=== PATIENT | female | born 1980 | race Caucasian/White ===

== ENCOUNTER 2017-06-01 18:05 | Emergency (ER) | payer SELFPAY ==
[~2017-06-01] VITALS: Ht 149.9 cm; Wt 56.3 kg
[2017-06-01] MEDS ORDERED: SODIUM CHLORIDE FLUSH 10ML SYR IVF ONE (18:30)
[2017-06-01] MEDS ORDERED: KETOROLAC 30 MG/1 ML IVPush ONE (18:30)
[2017-06-01] MEDS ORDERED: SODIUM CHLORIDE 0.9% 1,000ML IVBOLUS ONE (18:30)
[2017-06-01 18:44] LABS: HEMATOCRIT 30.2 % (34.6-47.8); HEMOGLOBIN 9.6 g/dL (11.7-16.4); WHITE BLOOD COUNT 10.6 x10^3/uL (3.4-10)
[2017-06-01 18:53] LABS: ASPARTATE AMINO TRANSFERASE 11 U/L (15-37); BLOOD UREA NITROGEN 10 mg/dL (7-18)
[2017-06-01] MEDS ORDERED: KETOROLAC 30 MG/1 ML ONE (18:53)
[2017-06-01 19:15] LABS: TOTAL IRON BINDING CAPACITY 463 mcg/dL (250-450)
[2017-06-01] MEDS ORDERED: morphine SULFATE 10 MG/ML, 1ML ONE (19:21)
[2017-06-01] MEDS ORDERED: MORPHINE SULFATE 4 MG/ML, 1ML IVPush ONE (19:30)
[2017-06-01] MEDS ORDERED: CEFTRIAXONE PMX 1GM/50ML 50 ML IV ONE (20:00)
[2017-06-01] MEDS ORDERED: CEFTRIAXONE PMX 1GM/50ML 50 ML ONE (20:28)
[2017-06-01 20:42] VITALS: BP 100/60
[2017-06-01 20:43] LABS: PATH.CAST-FLAG NOT PRESENT; SPERM-FLAG NOT PRESENT; SRC-FLAG NOT PRESENT; XTAL-FLAG NOT PRESENT; YLC-FLAG NOT PRESENT
== END 2017-06-01 21:51 | disposition home or self-care (01) ==
LOC: ED 21:05
DX: N10 Acute pyelonephritis (principal); D50.0 Iron deficiency anemia secondary to blood loss (chronic)
CPT/HCPCS: 36415; 74176; 80053; 81001; 83540; 83550; 84703; 85025; 87077; 87086; 87147; 96361; 96365; 96375; 99285; J0696; J1885; J7030; 87186

== ENCOUNTER 2017-11-27 16:19 | Emergency (ER) | payer MEDICAID, OTHER ==
[~2017-11-27] VITALS: Ht 149.9 cm; Wt 55.0 kg
[2017-11-27] MEDS ORDERED: ASPIRIN 81 MG TABLET CHEW PO ONE (17:00)
[2017-11-27] MEDS ORDERED: SODIUM CHLORIDE FLUSH 10ML SYR IVF ONE (17:00)
[2017-11-27] MEDS ORDERED: ASPIRIN 81 MG TABLET CHEW ONE (17:02)
[2017-11-27 17:03] LABS: BASOPHILS # (AUTO) 0.05 x10^3/uL (0-0.1); BASOPHILS % (AUTO) 1 % (0-1); EOSINOPHILS # (AUTO) 0.09 x10^3/uL (0-0.4); EOSINOPHILS % (AUTO) 1 % (1-7); LYMPHOCYTES # (AUTO) 2.34 x10^3/uL (1-3.4); LYMPHOCYTES % (AUTO) 35 % (22-44); MD MORPH REVIEW ONLY; MEAN CORPUSCULAR HEMOGLOBIN 19.5 pg (27.0-34.8); MEAN CORPUSCULAR HGB CONC 30.4 g/dL (32.4-35.8); MEAN CORPUSCULAR VOLUME 64.1 fL (80-100); MEAN PLATELET VOLUME 7.7 fL (7.4-10.4); MONOCYTES # (AUTO) 0.41 x10^3/uL (0.2-0.8); MONOCYTES % (AUTO) 6 % (2-9); NEUTROPHILS # (AUTO) 3.79 x10^3/uL (1.8-6.8); NEUTROPHILS % (AUTO) 57 % (42-75); PLATELET COUNT 438 x10^3/uL (130-400); RED BLOOD COUNT 4.34 x10^6/uL (3.82-5.3); RED CELL DISTRIBUTION WIDTH 23.3 % (9.6-15.2)
[2017-11-27 17:13] LABS: ALANINE AMINOTRANSFERASE 17 U/L (12-78); ALBUMIN 3.7 g/dL (3.4-5.0); ANION GAP 7 mmol/L (5-15); CALCIUM 8.5 mg/dL (8.5-10.1); CHLORIDE 110 mmol/L (98-107); CREATININE 0.77 mg/dL (0.55-1.02)
[2017-11-27 17:18] LABS: ALKALINE PHOSPHATASE 46 U/L (45-117); BILIRUBIN,TOTAL 0.2 mg/dL (0.2-1.0); TOTAL PROTEIN 7.6 g/dL (6.4-8.2); TROPONIN I < 0.015 ng/mL (0.000-0.045)
[2017-11-27] MEDS ORDERED: LORazepam 1MG TABLET ONE (17:23)
[2017-11-27] MEDS ORDERED: LORazepam 1MG TABLET PO ONE (17:30)
[2017-11-27 17:39] LABS: OVALOCYTES 1+; POLYCHROMASIA 1+
[2017-11-27 17:40] LABS: <PLATELET ESTIMATE> INCREASED; HYPOCHROMIA 2+; LARGE PLATELETS 1+; MICROCYTOSIS 2+
[2017-11-27 17:41] LABS: ANISOCYTOSIS 1+
[2017-11-27 17:57] LABS: FREE T4 (FREE THYROXINE) 1.15 ng/dL (0.76-1.46); THYROID STIMULATING HORMONE 4.51 mIU/L (0.358-3.740)
[2017-11-27] MEDS ORDERED: SODIUM CHLORIDE 0.9% 1,000ML IVBOLUS ONE (19:00)
[2017-11-27 20:20] VITALS: BP 104/76
== END 2017-11-27 21:13 | disposition home or self-care (01) ==
LOC: ED 20:51
DX: R07.2 Precordial pain (principal); F41.1 Generalized anxiety disorder; E03.9 Hypothyroidism, unspecified; D64.9 Anemia, unspecified; N12 Tubulo-interstitial nephritis, not specified as acute or chronic
CPT/HCPCS: 36415; 71045; 80053; 84439; 84443; 84481; 84484; 84703; 85025; 85379; 93005; 99285; J7030

== ENCOUNTER 2018-05-24 18:28 | Emergency (ER) | payer MEDICAID ==
[~2018-05-24] VITALS: Ht 149.9 cm; Wt 58.2 kg
[2018-05-24 18:53] LABS: BASOPHILS # (AUTO) 0.06 x10^3/uL (0-0.1); BASOPHILS % (AUTO) 1 % (0-1); EOSINOPHILS # (AUTO) 0.14 x10^3/uL (0-0.4); EOSINOPHILS % (AUTO) 2 % (1-7); LYMPHOCYTES # (AUTO) 3.35 x10^3/uL (1-3.4); LYMPHOCYTES % (AUTO) 40 % (22-44); MD NO; MEAN CORPUSCULAR HEMOGLOBIN 20.9 pg (27.0-34.8); MEAN CORPUSCULAR HGB CONC 30.9 g/dL (32.4-35.8); MEAN CORPUSCULAR VOLUME 67.6 fL (80-100); MEAN PLATELET VOLUME 7.7 fL (7.4-10.4); MONOCYTES # (AUTO) 0.43 x10^3/uL (0.2-0.8); MONOCYTES % (AUTO) 5 % (2-9); NEUTROPHILS # (AUTO) 4.37 x10^3/uL (1.8-6.8); NEUTROPHILS % (AUTO) 52 % (42-75); PLATELET COUNT 502 x10^3/uL (130-400); RED BLOOD COUNT 4.51 x10^6/uL (3.82-5.3); RED CELL DISTRIBUTION WIDTH 19.3 % (9.6-15.2)
[2018-05-24] MEDS ORDERED: ONDANSETRON ODT 4 MG PO ONE (19:00)
[2018-05-24] MEDS ORDERED: HYDROcodone/APAP 5/325 TABLET PO ONE ×2 (19:00→22:30)
[2018-05-24] MEDS ORDERED: ONDANSETRON ODT 4 MG ONE (19:04)
[2018-05-24 19:05] LABS: ALANINE AMINOTRANSFERASE 20 U/L (12-78); ALBUMIN 4.3 g/dL (3.4-5.0); ANION GAP 11 mmol/L (5-15); CALCIUM 8.7 mg/dL (8.5-10.1); CHLORIDE 105 mmol/L (98-107); CREATININE 0.66 mg/dL (0.55-1.02)
[2018-05-24] MEDS ORDERED: HYDROcodone/APAP 5/325 TABLET ONE ×2 (19:05→22:15)
[2018-05-24 19:07] LABS: ALKALINE PHOSPHATASE 47 U/L (45-117); BILIRUBIN,TOTAL 0.3 mg/dL (0.2-1.0)
[2018-05-24 19:07] LABS: MICROSCOPIC NOT IND
[2018-05-24 19:13] LABS: CULTURE INDICATED? NO
[2018-05-24 22:57] VITALS: BP 89/50
== END 2018-05-24 23:24 | disposition home or self-care (01) ==
LOC: ED 20:08
DX: R10.31 Right lower quadrant pain (principal); M25.551 Pain in right hip; E03.9 Hypothyroidism, unspecified; F41.1 Generalized anxiety disorder; Z90.49 Acquired absence of other specified parts of digestive tract
CPT/HCPCS: 36415; 76830; 80053; 81003; 83690; 84703; 85025; 99285; Q0162

== ENCOUNTER 2018-05-26 20:47 | Emergency (ER) | payer MEDICAID ==
[~2018-05-26] VITALS: Ht 149.9 cm; Wt 57.7 kg
[2018-05-26 21:54] LABS: HCG UR SG 1.034 (1.003-1.030)
[2018-05-26] MEDS ORDERED: HYDROcodone/APAP 5/325 TABLET PO ONE (22:00)
[2018-05-26] MEDS ORDERED: HYDROcodone/APAP 5/325 TABLET ONE (22:25)
[2018-05-26 22:54] LABS: CLUE CELLS NONE SEEN (NONE SEEN); WET PREP WBCS FEW (FEW)
[2018-05-26 23:00] VITALS: BP 98/57
== END 2018-05-26 23:35 | disposition home or self-care (01) ==
LOC: ED 23:01
DX: N89.8 Other specified noninflammatory disorders of vagina (principal); E03.9 Hypothyroidism, unspecified; R10.2 Pelvic and perineal pain; M54.5 Low back pain; Z98.890 Other specified postprocedural states; Z90.89 Acquired absence of other organs; Z87.42 Personal history of other diseases of the female genital tract
CPT/HCPCS: 76857; 81025; 87210; 87491; 87591; 87808; 99285

== ENCOUNTER 2018-11-26 11:53 | Emergency (ER) | payer MEDICAID ==
[~2018-11-26] VITALS: Ht 149.9 cm; Wt 57.0 kg
[2018-11-26] MEDS ORDERED: SODIUM CHLORIDE FLUSH 10ML SYR IVF ONE (12:30)
[2018-11-26] MEDS ORDERED: ONDANSETRON 2MG/ML, 2ML IVPush ONE (12:30)
[2018-11-26] MEDS ORDERED: ONDANSETRON 2MG/ML, 2ML ONE (12:32)
[2018-11-26] MEDS ORDERED: MORPHINE SULFATE 4 MG/ML, 1ML ONE ×2 (12:33→13:47)
--- NOTE | 2018-11-26 12:35 | NUR ---
PT C/O RIGHT FLANK PAIN FOR ABOUT A WEEK WITH FEVERS/CHILLS OVER LAST 2 DAYS, NAUSEA LAST 2 DAYS WELL. PT REPORTS INCREASED URINE FREQUENCY WELL. PT HAS HX OF PYELONEPHRITIS AND PT REPORTS SYMPTOMS FEEL SIMILAR.
[2018-11-26] MEDS: MORPHINE SULFATE 4 MG/ML, 1ML IVPush PRN ×2 (12:42→13:50)
[2018-11-26] MEDS ORDERED: LEVO100T5 PO (12:46)
[2018-11-26 12:59] LABS: CULTURE INDICATED? YES; MICROSCOPIC INDICATED
--- NOTE | 2018-11-26 13:09 | NUR ---
REPORT TO MORRIS Gamboa RN
[2018-11-26 13:33] LABS: ALANINE AMINOTRANSFERASE 14 U/L (12-78); ALBUMIN 3.8 g/dL (3.4-5.0); ANION GAP 6 mmol/L (5-15); CALCIUM 8.2 mg/dL (8.5-10.1); CHLORIDE 108 mmol/L (98-107); CREATININE 0.67 mg/dL (0.55-1.02)
[2018-11-26 13:38] LABS: ALKALINE PHOSPHATASE 49 U/L (45-117); BILIRUBIN,TOTAL 0.3 mg/dL (0.2-1.0); TOTAL PROTEIN 7.6 g/dL (6.4-8.2)
[2018-11-26 13:42] LABS: MEAN CORPUSCULAR HEMOGLOBIN 16.5 pg (27.0-34.8); MEAN CORPUSCULAR VOLUME 57.3 fL (80-100); MEAN PLATELET VOLUME 7.7 fL (7.4-10.4); PLATELET COUNT 403 x10^3/uL (130-400); RED CELL DISTRIBUTION WIDTH 21.2 % (9.6-15.2)
--- NOTE | 2018-11-26 13:44 | NUR ---
Hourly rounding on pt. Pt resting on gurney connected to NIBP and continous pulse ox. Call light within reach. NADN. Pt c/o "12/19" right flank and RLQ pain. Bed rail up for safety measures.
[2018-11-26 13:49] LABS: MEAN CORPUSCULAR HGB CONC 28.8 g/dL (32.4-35.8)
[2018-11-26 14:32] LABS: BASOPHILS # (AUTO) 0.02 x10^3/uL (0-0.1); BASOPHILS % (AUTO) 0 % (0-1); EOSINOPHILS # (AUTO) 0.08 x10^3/uL (0-0.4); EOSINOPHILS % (AUTO) 1 % (1-7); LYMPHOCYTES % (AUTO) 24 % (22-44); MD MORPH REVIEW ONLY; MONOCYTES # (AUTO) 0.62 x10^3/uL (0.2-0.8); MONOCYTES % (AUTO) 9 % (2-9); NEUTROPHILS # (AUTO) 4.36 x10^3/uL (1.8-6.8); NEUTROPHILS % (AUTO) 65 % (42-75)
[2018-11-26 14:36] LABS: ANISOCYTOSIS 2+; HYPOCHROMIA 2+; MICROCYTOSIS 2+
[2018-11-26 14:37] LABS: OVALOCYTES 1+
[2018-11-26 14:38] LABS: <PLATELET ESTIMATE> INCREASED; LARGE PLATELETS 1+
--- NOTE | 2018-11-26 14:53 | NUR ---
Purple slip sent to blood bank request.
[2018-11-26 15:05] VITALS: BP 117/74
[2018-11-26 15:20] VITALS: BP 102/66
--- NOTE | 2018-11-26 15:21 | NUR ---
LATE NOTE FOR 1505: PIV blood transfusion started. Please see transusions tab for details. NADN. No needs expressed. Pt connected to NIBP and continous pulse ox. Pt has spouse at bedside.
[2018-11-26] MEDS ORDERED: CEFDINIR 300 MG CAPSULE PO ONE (15:30)
[2018-11-26] MEDS ORDERED: CEFDINIR 300 MG CAPSULE ONE (15:39)
--- NOTE | 2018-11-26 15:42 | NUR ---
Provided pt medication per EMAR and water per request. Pt appreciative. NADN. Pt is AOX4, skin is pink, warm, and dry, vital signs stable (please see transfusions), and pt has unlabored respirations with even chest rise and fall. Both bedrails up for safety measures, call light within reach. No other needs requested at this time.
[2018-11-26 15:58] VITALS: BP 102/66
[2018-11-26 16:26] VITALS: BP 111/64
--- NOTE | 2018-11-26 16:28 | NUR ---
Pt resquesting pain medication for right flank pain prior to d/c from ED. Pt rates right flank pain at a 01/18. PIV blood transfusion finished infusing. Please see transfusions flow sheet. NADN. Call light within reach.
[2018-11-26] MEDS ORDERED: KETOROLAC 30 MG/1 ML ONE (16:31)
--- NOTE | 2018-11-26 16:38 | NUR ---
Verbal order placed per verbal report from ED PA. Verbal order read back. Provided medication per EMAR. Pt appreciative. NADN. No needs requested at this time. Call light within reach. Both bedrails up for safety measures.
[2018-11-26] MEDS ORDERED: KETOROLAC 30 MG/1 ML IVPush ONE (17:00)
== END 2018-11-26 17:04 | disposition home or self-care (01) ==
LOC: ED 12:13
DX: N30.01 Acute cystitis with hematuria (principal); D50.8 Other iron deficiency anemias
CPT/HCPCS: 36415; 36430; 76700; 80053; 81001; 83690; 84703; 85025; 86850; 86900; 86923; 87077; 87086; 96374; 96375; 96376; 99285; J1885; J2405; P9016; 87186

== ENCOUNTER 2019-01-06 22:47 | Emergency (ER) | payer MEDICAID ==
[~2019-01-06] VITALS: Ht 144.8 cm; Wt 58.8 kg
[~2019-01-06 22:47] MED LIST: LEVO100T5 PO
--- NOTE | 2019-01-06 22:58 | NUR ---
FIRST CONTACT WITH PT. PT HAS HEAVY VAGINAL BLEEDING. PT HAS HX OF SAME AND HAS HAD BLOOD TRANSFUSIONS FOR THIS. PT FEELING WEAK AND IS PASSING LARGE CLOTS. PT C/O ABD PAIN WITH NAUSEA WELL. PT'S AOX4. RESPS EVEN AND UNLABORED. AWAITING ORDERES.
[2019-01-06] MEDS ORDERED: SODIUM CHLORIDE FLUSH 10ML SYR IVF ONE (23:00)
[2019-01-06 23:11] LABS: MEAN CORPUSCULAR HEMOGLOBIN 21.6 pg (27.0-34.8); MEAN CORPUSCULAR HGB CONC 31.1 g/dL (32.4-35.8); MEAN CORPUSCULAR VOLUME 69.6 fL (80-100); PLATELET COUNT 366 x10^3/uL (130-400); RED BLOOD COUNT 4.49 x10^6/uL (3.82-5.3); RED CELL DISTRIBUTION WIDTH 34.1 % (9.6-15.2)
[2019-01-06 23:21] LABS: INTERNATIONAL NORMALIZED RATIO 0.95 (0.93-1.1)
[2019-01-06 23:22] LABS: ALANINE AMINOTRANSFERASE 25 U/L (12-78); ALBUMIN 3.7 g/dL (3.4-5.0); ANION GAP 7 mmol/L (5-15); CALCIUM 8.7 mg/dL (8.5-10.1); CHLORIDE 107 mmol/L (98-107); CREATININE 0.66 mg/dL (0.55-1.02)
[2019-01-06 23:26] LABS: ALKALINE PHOSPHATASE 51 U/L (45-117); BILIRUBIN,TOTAL 0.2 mg/dL (0.2-1.0); TOTAL PROTEIN 7.7 g/dL (6.4-8.2)
[2019-01-06 23:29] LABS: BASOPHILS # (AUTO) 0.01 x10^3/uL (0-0.1); BASOPHILS % (AUTO) 0 % (0-1); EOSINOPHILS # (AUTO) 0.24 x10^3/uL (0-0.4); EOSINOPHILS % (AUTO) 3 % (1-7); LYMPHOCYTES # (AUTO) 2.62 x10^3/uL (1-3.4); LYMPHOCYTES % (AUTO) 36 % (22-44); MD MORPH REVIEW ONLY; MONOCYTES # (AUTO) 0.41 x10^3/uL (0.2-0.8); MONOCYTES % (AUTO) 6 % (2-9); NEUTROPHILS # (AUTO) 3.89 x10^3/uL (1.8-6.8); NEUTROPHILS % (AUTO) 54 % (42-75)
[2019-01-06 23:30] LABS: ANISOCYTOSIS 2+
[2019-01-06 23:31] LABS: MICROCYTOSIS 1+
[2019-01-06 23:32] LABS: OVALOCYTES 1+; SCHISTOCYTES 1+
[2019-01-06 23:34] LABS: <PLATELET ESTIMATE> ADEQUATE; <PLT MORPHOLOGY> NORMAL PLT MORPH; HYPOCHROMIA 2+
--- NOTE | 2019-01-07 00:11 | NUR ---
PT PROVIDED WARM BLANCKET AND PILLOW. PT RESTING IN [facility]. RESPS EVEN AND UNLABORED. PT'S AOX4.
--- NOTE | 2019-01-07 00:42 | NUR ---
PELVIC EXAM DONE AT BEDSIDE. PT TOLERATED WELL.
[2019-01-07] MEDS ORDERED: KETOROLAC 60 MG/2 ML ONE (00:45)
[2019-01-07] MEDS ORDERED: HYDROcodone/APAP 5/325 TABLET ONE (00:46)
--- NOTE | 2019-01-07 00:52 | NUR ---
PT MEDICATED PER EMAR FOR PAIN. PT TOLERATED WELL. PT'S AOX4. RESPS EVEN AND UNLABORED.
[2019-01-07] MEDS ORDERED: HYDROcodone/APAP 5/325 TABLET PO ONE (01:00)
[2019-01-07] MEDS ORDERED: KETOROLAC 30 MG/1 ML IM ONE (01:00)
--- NOTE | 2019-01-07 01:26 | NUR ---
Pt ambulated to restroom with steady gait to provided ua.
[2019-01-07 01:50] LABS: MICROSCOPIC AUTO
[2019-01-07 01:53] LABS: CULTURE INDICATED? YES
[2019-01-07] MEDS ORDERED: CEFTRIAXONE PMX 1GM/50ML 50 ML ONE (02:39)
[2019-01-07 02:40] VITALS: BP 100/52
--- NOTE | 2019-01-07 02:45 | NUR ---
ABX INFUSING AT THIS TIME. PT TOLERATED WELL.
[2019-01-07] MEDS ORDERED: CEFTRIAXONE PMX 1GM/50ML 50 ML IV ONE (03:00)
--- NOTE | 2019-01-07 03:28 | NUR ---
PT GIVEN DC INSTRUCTIONS AND SCRIPTS. PT EDUCATED REGARDING DC MEDICATIONS. PT'S AOX4. RESPS EVEN AND UNLABORED. NO ACUTE DISTRESS AT DC. PT AMB TO DC WITH STEADY GAIT.
== END 2019-01-07 03:29 | disposition home or self-care (01) ==
LOC: ED 23:07
DX: N30.01 Acute cystitis with hematuria (principal); D50.0 Iron deficiency anemia secondary to blood loss (chronic); N93.8 Other specified abnormal uterine and vaginal bleeding; E03.9 Hypothyroidism, unspecified
CPT/HCPCS: 36415; 80053; 81001; 84703; 85025; 85610; 85730; 86850; 86900; 87086; 96365; 96372; 99283; J0696; J1885; 87077; 87186

== ENCOUNTER 2019-08-08 18:15 | Emergency (ER) | payer MEDICAID ==
[~2019-08-08] VITALS: Ht 149.9 cm; Wt 56.0 kg
[2019-08-08] MEDS ORDERED: OXYC5CAP2 PO (18:53)
--- NOTE | 2019-08-08 18:55 | NUR ---
SBAR RPT TO [facility] RN'S
[2019-08-08 18:56] LABS: ALANINE AMINOTRANSFERASE 13 U/L (12-78); ALBUMIN 3.9 g/dL (3.4-5.0); ANION GAP 8 mmol/L (5-15); CALCIUM 8.2 mg/dL (8.5-10.1); CHLORIDE 106 mmol/L (98-107); CREATININE 0.85 mg/dL (0.55-1.02)
[2019-08-08] MEDS ORDERED: LORazepam 1MG TABLET PO ONE (19:00)
[2019-08-08] MEDS ORDERED: KETOROLAC 30 MG/1 ML IM ONE (19:00)
[2019-08-08 19:01] LABS: ALKALINE PHOSPHATASE 46 U/L (45-117); BILIRUBIN,TOTAL 0.3 mg/dL (0.2-1.0); T4 (THYROXINE) 9.9 mcg/dL (4.8-13.9); TOTAL PROTEIN 7.7 g/dL (6.4-8.2)
[2019-08-08 19:10] LABS: MEAN CORPUSCULAR HEMOGLOBIN 16.8 pg (27.0-34.8); MEAN CORPUSCULAR VOLUME 57.2 fL (80-100); MEAN PLATELET VOLUME 7.5 fL (7.4-10.4); PLATELET COUNT 573 x10^3/uL (130-400); RED BLOOD COUNT 4.25 x10^6/uL (3.82-5.3); RED CELL DISTRIBUTION WIDTH 20.5 % (9.6-15.2)
[2019-08-08 19:13] LABS: MD YES
[2019-08-08 19:17] LABS: BASOS#(MANUAL) 0.06 x10^3/uL (0-0.1); BASOS% (MANUAL) 1 % (0-1); EOS#(MANUAL) 0.06 x10^3/uL (0.0-0.4); EOS% (MANUAL) 1 % (1-7); LYMPH#(MANUAL) 1.89 x10^3/uL (1-3.4); LYMPHS% (MANUAL) 30 % (22-44); MONOS#(MANUAL) 0.32 x10^3/uL (0.3-2.7); MONOS% (MANUAL) 5 % (2-9); REACTIVE LYMPHS # (MANUAL) 0.13 x10^3/uL (0-0); REACTIVE LYMPHS % (MANUAL) 2 % (0-0); SEG#(MANUAL) 3.84 x10^3/uL (1.8-6.8); SEGS% (MANUAL) 61 % (42-75)
[2019-08-08 19:18] LABS: ANISOCYTOSIS 1+; HYPOCHROMIA 2+; MICROCYTOSIS 2+; POLYCHROMASIA 1+; TARGET CELLS 1+
[2019-08-08 19:19] LABS: OVALOCYTES 1+
[2019-08-08 19:20] LABS: <PLATELET ESTIMATE> INCREASED; <PLT MORPHOLOGY> NORMAL PLT MORPH; MEAN CORPUSCULAR HGB CONC 29.4 g/dL (32.4-35.8)
[2019-08-08] MEDS ORDERED: KETOROLAC 60 MG/2 ML ONE (19:26)
[2019-08-08] MEDS ORDERED: LORazepam 1MG TABLET ONE (19:27)
--- NOTE | 2019-08-08 19:30 | NUR ---
PT MEDICATED PER SEP. MD IN ROOM TO INFORM PT ABOUT POC. PT DENIES FURTHER NEEDS AT THIS TIME. MONITORING IN PLACE, CALL LIGHT WITHIN REACH, ALL SAFETY MEASURES IN PLACE.
[2019-08-08 20:42] VITALS: BP 106/57
[2019-08-08 20:56] VITALS: BP 108/72
[2019-08-08 21:37] VITALS: BP 94/58
[2019-08-08 21:40] VITALS: BP 94/58
--- NOTE | 2019-08-08 21:41 | NUR ---
BLOOD TRANSFUSED TO PT, TOLERATED WELL. PT RESTING ON GURNEY WITH EYES CLOSED. FAMILY AT BS FOR SUPPORT. ALL MONITORING STILL APPLIED, CALL LIGHT WITHIN REACH.
== END 2019-08-08 22:38 | disposition home or self-care (01) ==
LOC: ED 21:11
DX: M54.2 Cervicalgia (principal); M25.512 Pain in left shoulder; M54.6 Pain in thoracic spine; R25.2 Cramp and spasm; D63.8 Anemia in other chronic diseases classified elsewhere; R20.2 Paresthesia of skin; E03.9 Hypothyroidism, unspecified; Z90.49 Acquired absence of other specified parts of digestive tract
CPT/HCPCS: 36415; 80053; 83735; 84436; 84443; 84703; 85025; 86850; 86900; 86923; 93005; 96372; 99284; J1885; P9016

== ENCOUNTER 2020-01-06 23:08 | Emergency (ER) | payer MEDICAID ==
[~2020-01-06] VITALS: Ht 144.8 cm; Wt 58.0 kg
[~2020-01-06 23:08] MED LIST changes: +OXYC5CAP2 PO
[2020-01-07] MEDS ORDERED: HYDROcodone/APAP 5/325 TABLET ONE (00:18)
[2020-01-07] MEDS ORDERED: HYDROcodone/APAP 5/325 TABLET PO ONE (00:30)
[2020-01-07 00:33] LABS: MEAN CORPUSCULAR HEMOGLOBIN 15.9 pg (27.0-34.8); MEAN CORPUSCULAR VOLUME 57.1 fL (80-100); MEAN PLATELET VOLUME 7.8 fL (7.4-10.4); PLATELET COUNT 412 x10^3/uL (130-400); RED BLOOD COUNT 3.96 x10^6/uL (3.82-5.3); RED CELL DISTRIBUTION WIDTH 22.9 % (9.6-15.2)
[2020-01-07 00:34] LABS: MEAN CORPUSCULAR HGB CONC 27.8 g/dL (32.4-35.8)
[2020-01-07 00:35] LABS: ALANINE AMINOTRANSFERASE 19 U/L (12-78); ALBUMIN 3.6 g/dL (3.4-5.0); ANION GAP 5 mmol/L (5-15); CALCIUM 8.4 mg/dL (8.5-10.1); CHLORIDE 108 mmol/L (98-107); CREATININE 0.63 mg/dL (0.55-1.02)
--- NOTE | 2020-01-07 00:35 | NUR ---
PT MEDICATED PER MAR. REQUESTING TO WAIT OR US UNTIL MEDS KICK IN. US TECH AWARE.
[2020-01-07 00:40] LABS: ALKALINE PHOSPHATASE 59 U/L (45-117); BILIRUBIN,TOTAL 0.2 mg/dL (0.2-1.0); TOTAL PROTEIN 7.6 g/dL (6.4-8.2)
--- NOTE | 2020-01-07 01:02 | NUR ---
PT STATES PAIN IS IMPROVING. PT TO US VIA JOSE. BLOOD TO BE TRANSFUSED UPON RETURN.
[2020-01-07 01:03] LABS: MD YES
[2020-01-07 01:18] LABS: ANISOCYTOSIS 1+; EOS#(MANUAL) 0.07 x10^3/uL (0.0-0.4); EOS% (MANUAL) 1 % (1-7); LYMPH#(MANUAL) 2.49 x10^3/uL (1-3.4); LYMPHS% (MANUAL) 35 % (22-44); MONOS% (MANUAL) 7 % (2-9); SEG#(MANUAL) 4.05 x10^3/uL (1.8-6.8); SEGS% (MANUAL) 57 % (42-75)
[2020-01-07 01:19] LABS: <PLATELET ESTIMATE> INCREASED; HYPOCHROMIA 2+; MICROCYTOSIS 2+; OVALOCYTES 1+; POLYCHROMASIA 1+; TARGET CELLS 1+
[2020-01-07 01:20] LABS: <PLT MORPHOLOGY> NORMAL PLT MORPH
[2020-01-07] MEDS ORDERED: MORPHINE SULFATE 4 MG/ML, 1ML ONE ×2 (01:40→03:43)
[2020-01-07] MEDS ORDERED: ONDANSETRON 2MG/ML, 2ML ONE (01:40)
[2020-01-07] MEDS: MORPHINE SULFATE 4 MG/ML, 1ML IVPush PRN ×2 (01:49→03:50)
[2020-01-07] MEDS ORDERED: ONDANSETRON 2MG/ML, 2ML IVPush ONE (02:00)
[2020-01-07] MEDS ORDERED: SODIUM CHLORIDE 0.9% 1,000ML IVBOLUS ONE (02:00)
[2020-01-07 02:06] VITALS: BP 114/66
--- NOTE | 2020-01-07 02:07 | NUR ---
BLOOD TRANSFUSION STARTED. PT AWARE OF S/S TO NOTIFY RN. BP AND PULSE OX MONITORING IN PLACE. CALL LIGHT IN REACH.
[2020-01-07 02:24] VITALS: BP 96/61
--- NOTE | 2020-01-07 02:25 | NUR ---
PT DENIES RX SYMPTOMS AT THIS TIME. VSS. BLOOD TRANSFUSION CONTINUES. PT AWARE TO NOTIFY RN IMMEDIATELY WITH ANY NEW SYMPTOMS OR CONCERNS. CALL LIGHT IN REACH.
[2020-01-07 02:39] LABS: MICROSCOPIC NOT IND
[2020-01-07 03:48] VITALS: BP 107/59
--- NOTE | 2020-01-07 03:51 | NUR ---
PT TOLERATED FIRST UNIT WELL. NO REACTION NOTED. C/O INCREASING RLQ ABD PAIN. MEDICATED PER SEP. AWAITING SECOND UNIT. CALL LIGHT IN REACH.
[2020-01-07 04:15] VITALS: BP 107/59
--- NOTE | 2020-01-07 04:15 | NUR ---
Second unit PRBC transfusing. Pt reminded of s/s to notify RN. Pt states pain has improved. VSS. Call light in reach.
[2020-01-07 04:31] VITALS: BP 104/70
--- NOTE | 2020-01-07 04:32 | NUR ---
PT TOLERATING SECOND UNIT AT THIS TIME. DENIES NEEDS. CALL LIGHT IN REACH.
--- NOTE | 2020-01-07 04:52 | NUR ---
REPORT FROM NABIL ARAGON
--- NOTE | 2020-01-07 04:55 | NUR ---
Report to Flor FERRER.
[2020-01-07 05:46] VITALS: BP 105/74
--- NOTE | 2020-01-07 05:47 | NUR ---
blood transfusion ended. no adverse reactions observed. pt to be discharged
== END 2020-01-07 06:11 | disposition home or self-care (01) ==
LOC: ED 01-07 00:33
DX: N93.8 Other specified abnormal uterine and vaginal bleeding (principal); N92.4 Excessive bleeding in the premenopausal period; D62 Acute posthemorrhagic anemia; E03.9 Hypothyroidism, unspecified; Z90.49 Acquired absence of other specified parts of digestive tract
CPT/HCPCS: 36415; 36430; 76830; 80053; 81003; 84703; 85025; 86850; 86900; 86923; 93005; 96361; 96374; 96375; 96376; 99291; J2270; J2405; J7030; P9016

== ENCOUNTER 2020-01-17 13:05 | Emergency (ER) | payer MEDICAID ==
[~2020-01-17] VITALS: Ht 147.3 cm; Wt 57.6 kg
[2020-01-17 13:50] LABS: MICROSCOPIC INDICATED
--- NOTE | 2020-01-17 13:52 | NUR ---
PT STATES GEN WEAKNESS AND SOB X2 WEEKS. PT STATES BLOOD TRANSFUSION X2 WEEKS AGO R/T CHRONIC ANEMIA. PT UP TO VOID STEADY GAIT, UA COLLECED AND SENT TO LAB. PT PLACED ON MONITORS. PT IN NO RESPIR DISTRESS, SPEAKING IN FULL SENTANCES. LAB AT BEDSIDE FOR LAB DRAW. CONT TO FOLLOW ORDERS.
[2020-01-17 14:25] LABS: ALBUMIN 3.7 g/dL (3.4-5.0); ANION GAP 8 mmol/L (5-15); CALCIUM 8.7 mg/dL (8.5-10.1); CHLORIDE 107 mmol/L (98-107)
[2020-01-17 14:37] LABS: MEAN CORPUSCULAR HEMOGLOBIN 18.3 pg (27.0-34.8); MEAN CORPUSCULAR VOLUME 62.8 fL (80-100); MEAN PLATELET VOLUME 8.7 fL (7.4-10.4); PLATELET COUNT 360 x10^3/uL (130-400); RED BLOOD COUNT 4.83 x10^6/uL (3.82-5.3); RED CELL DISTRIBUTION WIDTH 35.7 % (9.6-15.2)
[2020-01-17 14:38] LABS: ALANINE AMINOTRANSFERASE 24 U/L (12-78); ALKALINE PHOSPHATASE 56 U/L (45-117); CREATININE 0.76 mg/dL (0.55-1.02); TOTAL PROTEIN 8.8 g/dL (6.4-8.2)
--- NOTE | 2020-01-17 15:00 | NUR ---
PT RESTING IN BED, AWAITING ALL RESULTS. PT REMAINS ON MONITORS, VSS. CONT TO MONITOR.
[2020-01-17 16:16] LABS: MD YES
[2020-01-17 16:24] LABS: EOS#(MANUAL) 0.05 x10^3/uL (0.0-0.4); EOS% (MANUAL) 1 % (1-7); LYMPH#(MANUAL) 1.53 x10^3/uL (1-3.4); LYMPHS% (MANUAL) 30 % (22-44); MONOS#(MANUAL) 0.31 x10^3/uL (0.3-2.7); MONOS% (MANUAL) 6 % (2-9); SEG#(MANUAL) 3.21 x10^3/uL (1.8-6.8); SEGS% (MANUAL) 63 % (42-75)
[2020-01-17 16:25] LABS: ANISOCYTOSIS 1+; HYPOCHROMIA 2+; MICROCYTOSIS 2+; OVALOCYTES 1+; POLYCHROMASIA 1+; TARGET CELLS 1+
[2020-01-17 16:26] LABS: <PLATELET ESTIMATE> ADEQUATE; <PLT MORPHOLOGY> NORMAL PLT MORPH; MEAN CORPUSCULAR HGB CONC 29.2 g/dL (32.4-35.8)
--- NOTE | 2020-01-17 16:57 | NUR ---
PT GIVEN MORE BLANKETS FOR COMFORT. PT REMAINS ON MONITORS, VSS. UP FOR ERMD RECHECK. CONT TO MONITOR.
--- NOTE | 2020-01-17 17:52 | NUR ---
PT RESTING IN BED, REMAINS ON MONITORS, VSS. PT GIVEN WATER PER REQUEST. WILL FOLLOW ORDERS.
--- NOTE | 2020-01-17 19:04 | NUR ---
PT UP FOR ER D/C, AWAITING PAPERWORK. WILL D/C WHEN ABLE.
--- NOTE | 2020-01-17 19:26 | NUR ---
PT D/C'D PER ORDERS. PT HAS ALL OWN BELONGINGS UPON D/C. PT VERBALIZED UNDERSTANDING OF D/C ORDERS.
[2020-01-17 19:27] VITALS: BP 108/67
== END 2020-01-17 19:29 | disposition home or self-care (01) ==
LOC: ED 14:32
DX: R06.00 Dyspnea, unspecified (principal); Z20.828 Contact with and (suspected) exposure to other viral communicable diseases; R53.83 Other fatigue; R42 Dizziness and giddiness
CPT/HCPCS: 36415; 71045; 80053; 81001; 82728; 83605; 83615; 84145; 84443; 85025; 86140; 86308; 87040; 87086; 87635; 93005; 99285

== ENCOUNTER 2020-08-08 02:48 | Emergency (ER) | payer MEDICAID ==
[~2020-08-08] VITALS: Ht 149.9 cm; Wt 63.0 kg
[2020-08-08] MEDS ORDERED: MORPHINE SULFATE 4 MG/ML, 1ML ONE (03:16)
[2020-08-08] MEDS ORDERED: ONDANSETRON 2MG/ML, 2ML ONE (03:16)
[2020-08-08 03:28] LABS: BASOPHILS % (AUTO) 1 % (0-1); EOSINOPHILS % (AUTO) 1 % (1-7); LYMPHOCYTES % (AUTO) 31 % (22-44); MEAN CORPUSCULAR HEMOGLOBIN 17.1 pg (27.0-34.8); MEAN CORPUSCULAR HGB CONC 30.1 g/dL (32.4-35.8); MEAN PLATELET VOLUME 7.4 fL (7.4-10.4); MONOCYTES % (AUTO) 7 % (2-9); NEUTROPHILS % (AUTO) 60 % (42-75); PLATELET COUNT 473 x10^3/uL (130-400); RED BLOOD COUNT 4.19 x10^6/uL (3.82-5.3); RED CELL DISTRIBUTION WIDTH 19.2 % (9.6-15.2)
[2020-08-08] MEDS ORDERED: ONDANSETRON 2MG/ML, 2ML IVPush ONE (03:30)
[2020-08-08] MEDS ORDERED: SODIUM CHLORIDE FLUSH 10ML SYR IVF ONE (03:30)
[2020-08-08] MEDS ORDERED: MORPHINE SULFATE 4 MG/ML, 1ML IVPush PRN (03:30)
[2020-08-08 03:42] LABS: ALANINE AMINOTRANSFERASE 17 U/L (12-78); ALBUMIN 3.6 g/dL (3.4-5.0); ANION GAP 8 mmol/L (5-15); CALCIUM 8.6 mg/dL (8.5-10.1); CHLORIDE 110 mmol/L (98-107); CREATININE 0.75 mg/dL (0.55-1.02)
[2020-08-08 03:47] LABS: ALKALINE PHOSPHATASE 54 U/L (45-117); BILIRUBIN,TOTAL 0.2 mg/dL (0.2-1.0); TOTAL PROTEIN 7.7 g/dL (6.4-8.2); TROPONIN I < 0.015 ng/mL (0.000-0.045)
[2020-08-08 04:12] LABS: MD SCAN
[2020-08-08] MEDS ORDERED: FAMOTIDINE 20 MG TABLET PO ONE (04:30)
[2020-08-08] MEDS ORDERED: MAALOX/HYOSCYAMINE/LIDOCAINE 45 ML BTL PO ONE (04:30)
[2020-08-08] MEDS ORDERED: FAMOTIDINE 20 MG TABLET ONE (05:08)
[2020-08-08] MEDS ORDERED: MAALOX/HYOSCYAMINE/LIDOCAINE 45 ML BTL ONE (05:08)
--- NOTE | 2020-08-08 05:36 | NUR ---
Pt states pain has improved but not gone away. Pt anxious about results of US. Coached pt on managing anxiety with breathing exercises. Pt feeling much better.
--- NOTE | 2020-08-08 06:59 | NUR ---
REPORT FROM NABIL MORALES FOR TRANSFER OF PATIENT CARE.
[2020-08-08 07:21] VITALS: BP 92/54
--- NOTE | 2020-08-08 07:37 | NUR ---
IV removed with tip intact. Patient given discharge instructions and prescription and they have confirmed that they understand the instructions. Patient stable and ambulatory with steady gait from ED to private vehicle with daughter.
== END 2020-08-08 07:38 | disposition home or self-care (01) ==
LOC: ED 04:58
DX: R07.89 Other chest pain (principal); R10.13 Epigastric pain; D63.8 Anemia in other chronic diseases classified elsewhere; E03.9 Hypothyroidism, unspecified; Z90.49 Acquired absence of other specified parts of digestive tract
CPT/HCPCS: 36415; 71045; 76700; 80053; 83690; 83880; 84484; 84703; 85025; 93005; 96374; 96375; 99285; J2270; J2405

== ENCOUNTER 2020-11-15 17:17 | Emergency (ER) | payer MEDICAID ==
[~2020-11-15] VITALS: Ht 149.9 cm; Wt 62.4 kg
--- NOTE | 2020-11-15 17:29 | NUR ---
EKG AND LABS DONE IN TRIAGE.
[2020-11-15 17:43] LABS: RED CELL DISTRIBUTION WIDTH 20.9 % (9.6-15.2)
[2020-11-15 17:51] LABS: ALANINE AMINOTRANSFERASE 17 U/L (12-78); ALBUMIN 3.8 g/dL (3.4-5.0); ANION GAP 5 mmol/L (5-15); CALCIUM 8.2 mg/dL (8.5-10.1); CHLORIDE 109 mmol/L (98-107)
[2020-11-15 17:54] LABS: ALKALINE PHOSPHATASE 56 U/L (45-117); BILIRUBIN,TOTAL 0.2 mg/dL (0.2-1.0); CREATININE 0.57 mg/dL (0.55-1.02); TOTAL PROTEIN 7.7 g/dL (6.4-8.2)
[2020-11-15 17:55] LABS: BASOPHILS % (AUTO) 1 % (0-1); EOSINOPHILS % (AUTO) 2 % (1-7); LYMPHOCYTES % (AUTO) 38 % (22-44); MEAN CORPUSCULAR HGB CONC 30.3 g/dL (32.4-35.8); MEAN PLATELET VOLUME 8.5 fL (7.4-10.4); MONOCYTES % (AUTO) 6 % (2-9); NEUTROPHILS % (AUTO) 53 % (42-75); PLATELET COUNT 482 x10^3/uL (130-400); RED BLOOD COUNT 3.84 x10^6/uL (3.82-5.3)
[2020-11-15 18:48] LABS: MD MORPH REVIEW ONLY
[2020-11-15 18:50] LABS: <PLATELET ESTIMATE> INCREASED
[2020-11-15 18:51] LABS: LARGE PLATELETS 1+
[2020-11-15 18:52] LABS: ANISOCYTOSIS 1+; HYPOCHROMIA 2+; MICROCYTOSIS 2+; OVALOCYTES 1+
--- NOTE | 2020-11-15 19:00 | NUR ---
PT TO ROOM FROM LOBBY
--- NOTE | 2020-11-15 19:01 | NUR ---
INITIAL PT CONTACT. PT SENT BY PCP OFFICE FOR LOW HEMOGLOBIN LEVEL, PER PATIENT "LESS THAN 6." PATIENT REPORTS SOB, CHEST TIGHTNESS AND WEAKNESS. HX OF BLOOD TRANSFUSIONS, "I DONT KNOW WHAT IS CAUSING IT, I HAVE HAD ISSUES WITH IRON AND HEAVY PERIODS". PT SITTING UPRIGHT ON ULISES GARCIA, VSS. PT DENIES ANY NEEDS AT THIS TIME. CALL LIGHT AND BELONGINGS WITHIN REACH, FAMILY AT BEDSIDE.
--- NOTE | 2020-11-15 19:10 | NUR ---
ERP AT BEDSIDE
[2020-11-15] MEDS ORDERED: FERROUS SULFATE 325 MG TABLET PO ONE (20:00)
[2020-11-15 20:15] VITALS: BP 101/73
--- NOTE | 2020-11-15 20:21 | NUR ---
BLOOD TRANSFUSION STARTED PER ERP ORDER. CONSENT AT BEDSIDE. VERIFIED WITH NAMAN Dill RN.
[2020-11-15 20:30] VITALS: BP 94/67
[2020-11-15 20:45] VITALS: BP 102/66
[2020-11-15 21:00] VITALS: BP 104/63
[2020-11-15 21:30] VITALS: BP 103/70
[2020-11-15 22:07] VITALS: BP 102/65
--- NOTE | 2020-11-15 22:07 | NUR ---
Patient given discharge instructions and they have confirmed that they understand the instructions. Patient ambulatory with steady gait.
== END 2020-11-15 22:23 | disposition home or self-care (01) ==
LOC: ED 19:56
DX: D50.0 Iron deficiency anemia secondary to blood loss (chronic) (principal)
CPT/HCPCS: 36415; 36430; 80053; 85025; 86850; 86900; 86923; 93005; 99285; P9016

== ENCOUNTER 2021-03-16 14:06 | Emergency (ER) | payer MEDICAID ==
[~2021-03-16] VITALS: Ht 149.9 cm; Wt 61.5 kg
[2021-03-16] MEDS ORDERED: SODIUM CHLORIDE 0.9% 1,000ML IVBOLUS ONE (14:30)
[2021-03-16 14:50] LABS: BASOPHILS % (AUTO) 1 % (0-1); EOSINOPHILS % (AUTO) 2 % (1-7); LYMPHOCYTES % (AUTO) 38 % (22-44); MEAN CORPUSCULAR HEMOGLOBIN 25.3 pg (27.0-34.8); MEAN CORPUSCULAR HGB CONC 31.9 g/dL (32.4-35.8); MEAN PLATELET VOLUME 7.9 fL (7.4-10.4); MONOCYTES % (AUTO) 6 % (2-9); NEUTROPHILS % (AUTO) 53 % (42-75); PLATELET COUNT 445 x10^3/uL (130-400); RED BLOOD COUNT 4.49 x10^6/uL (3.82-5.3); RED CELL DISTRIBUTION WIDTH 19.2 % (9.6-15.2)
[2021-03-16 14:53] LABS: ALANINE AMINOTRANSFERASE 26 U/L (12-78); ALBUMIN 3.4 g/dL (3.4-5.0); ANION GAP 4 mmol/L (5-15); CALCIUM 8.2 mg/dL (8.5-10.1); CHLORIDE 108 mmol/L (98-107); CREATININE 0.58 mg/dL (0.55-1.02)
[2021-03-16 15:02] LABS: ALKALINE PHOSPHATASE 66 U/L (45-117); BILIRUBIN,TOTAL 0.2 mg/dL (0.2-1.0); TOTAL PROTEIN 7.6 g/dL (6.4-8.2)
[2021-03-16 15:26] LABS: FREE T4 (FREE THYROXINE) 1.42 ng/dL (0.76-1.46)
--- NOTE | 2021-03-16 15:36 | NUR ---
ALL RESULTS BACK, PT FOR RECHECK.
[2021-03-16 16:33] VITALS: BP 114/68
== END 2021-03-16 16:50 | disposition home or self-care (01) ==
LOC: ED 16:10
DX: D50.9 Iron deficiency anemia, unspecified (principal); R53.1 Weakness; M25.512 Pain in left shoulder
CPT/HCPCS: 36415; 80053; 84439; 84443; 84481; 85025; 86850; 86900; 99284